=== PATIENT | male | born 1990 | race American Indian/Alaskan Native ===

== ENCOUNTER 2016-08-20 18:47 | Emergency (ER) | payer MEDICAID, OTHER ==
[2016-08-20] MEDS ORDERED: Alum Hydrox/Mag Hydrox/Simeth 15 ML, Lidocaine 2% 15 ML PO ONE ×2 (18:53)
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
[2016-08-20 19:44] VITALS: BP 130/63
[2016-08-20] MEDS ORDERED: ALPRAZolam 0.5 MG Tab PO ONE (19:48)
== END 2016-08-20 21:06 | disposition home or self-care (01) ==
LOC: JP.ED 18:47
DX: F41.9 Anxiety disorder, unspecified (principal)
CPT/HCPCS: 36415; 80048; 84484; 85027; 93005; 99285; A9270